=== PATIENT | female | born 2000 | race American Indian/Alaskan Native ===

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

== ENCOUNTER 2020-07-18 14:10 | Emergency (ER) | payer SELFPAY ==
--- NOTE | 2020-07-18 15:38 | Emergency Department Report ---
ED General Adult HPI - General Chief complaint: Psych Stated complaint: im depressed PUI?: No Time Seen by Provider: 07/18/20 15:35 Source: patient, EMS ( EMS documentation not available at time of chart dictation ), RN notes reviewed, old records reviewed Mode of arrival: Stretcher Limitations: No Limitations - History of Present Illness Initial comments: The patient was evaluated in the emergency department for symptoms described in the history of present illness. He/she was evaluated in the context of the global COVID-19 pandemic, which necessitated consideration that the patient might be at risk for infection with the virus that causes COVID-19. Institutional protocols and algorithms that pertain to the evaluation of patients at risk for COVID-19 are in a state of rapid change based on information released by regulatory bodies including the CDC and federal and state organizations. These policies and algorithms were followed during the patient's care in the emergency department. Please note that these policies, procedures and recommendations changed on a rapid basis. During the history and physical examination, I am chaperoned by nurse Angelika Campos This is a pleasant 19-year-old female. 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 She presents to the ER today with complaint of painless depression. She reports that a family member recently . She reports that a few years ago, she was here at this hospital, and started on a medication, the name of which she cannot remember, and felt that it helped her out, and is requesting for refill on this medication. The patient denies all physical pain. The patient denies homicidality, suicidality, hallucinations, urinary symptoms, Covid symptoms, unintentional overdose. The patient reports that she works at home, for [employer]. The patient has no medical complaints at this time. -: Gradual Consistency: constant Improves with: none Worsens with: none Associated Symptoms: denies other symptoms - Related Data Previous Rx's Medication Instructions Recorded Last Taken Type Metoclopramide [Reglan] 10 mg PO ACHS #60 tablet 01/03/18 Unknown Rx cephALEXin [Keflex] 500 mg PO TID 21 Days #1 capsule 01/03/18 Unknown Rx diphenhydrAMINE [Benadryl CAP] 25 mg PO Q8HR PRN #30 capsule 01/03/18 Unknown Rx Ibuprofen 800 mg PO TID PRN #30 tablet 01/29/18 Unknown Rx Allergies Allergy/AdvReac Type Severity Reaction Status Date / Time No Known Allergies Allergy Unverified 08/18/17 08:43 ED Review of Systems ROS: Stated complaint: SUCIDAL IDEATION Other details as noted in HPI Comment: All other systems reviewed and negative Psychiatric: depression. denies: auditory hallucinations, visual hallucinations, homicidal thoughts, suicidal thoughts ED Past Medical Hx - Social History Smoking Status: Current Every Day Smoker Substance Use Type: None - Medications Home Medications: Home Medications Medication Instructions Recorded Confirmed Last Taken Type Metoclopramide [Reglan] 10 mg PO ACHS #60 tablet 01/03/18 Unknown Rx cephALEXin [Keflex] 500 mg PO TID 21 Days #1 capsule 01/03/18 Unknown Rx diphenhydrAMINE [Benadryl CAP] 25 mg PO Q8HR PRN #30 capsule 01/03/18 Unknown Rx Ibuprofen 800 mg PO TID PRN #30 tablet 01/29/18 Unknown Rx ED Physical Exam - General Limitations: No Limitations General appearance: alert, in no apparent distress, obese - Head Head exam: Present: atraumatic, normocephalic - Eye Eye exam: Present: normal appearance, EOMI. Absent: nystagmus - ENT ENT exam: Present: normal exam, normal orophraynx, mucous membranes moist, normal external ear exam - Neck Neck exam: Present: normal inspection, full ROM. Absent: tenderness, meningismus - Respiratory Respiratory exam: Present: normal lung sounds bilaterally. Absent: respiratory distress, wheezes, rales, rhonchi, stridor, decreased breath sounds - Cardiovascular Cardiovascular Exam: Present: regular rate, normal rhythm, normal heart sounds. Absent: bradycardia, tachycardia, irregular rhythm, systolic murmur, diastolic murmur, rubs, gallop - GI/Abdominal GI/Abdominal exam: Present: soft, normal bowel sounds. Absent: distended, tenderness, guarding, rebound, rigid, pulsatile mass - Extremities Exam Extremities exam: Present: normal inspection, full ROM, other (2+ pulses noted in the bilateral upper and lower extremities. There is no palpable cord. negative Homans sign. Muscular compartments are soft. The pelvis is stable.). Absent: pedal edema, calf tenderness - Back Exam Back exam: Present: normal inspection. Absent: tenderness, CVA tenderness (R), CVA tenderness (L), paraspinal tenderness, vertebral tenderness - Neurological Exam Neurological exam: Present: alert, oriented X3, normal gait, other (No facial droop. Tongue midline. Extraocular movements intact bilaterally. Facial sensation intact to light touch in V1, V2, V3 distribution bilaterally. 5 and a 5 strength in 4 extremities. Sensation intact to light touch in 4 extremities.). Absent: motor sensory deficit - Psychiatric Psychiatric exam: Present: normal mood. Absent: flat affect, manic, homicidal ideation, suicidal ideation - Skin Skin exam: Present: warm, dry, intact, normal color. Absent: rash ED Course Vital Signs 07/18/20 15:20 Temperature 98.5 F Pulse Rate 90 Respiratory 20 Rate Blood Pressure 158/77 [Left] O2 Sat by Pulse 97 Oximetry - Reevaluation(s) Reevaluation #1: 07/18/20 17:12 Differential diagnosis, including but not limited to: Encounter for behavioral health screening examination, dysthymia, general medical exam Assessment and plan: 19-year-old female with a GCS of 15, benign and unremarkable physical exam with the exception of elevated blood pressure and BMI of 38, with a complaint of painless depression, and request for antidepressant medication refill. Patient is not homicidal or suicidal, she is calm and cooperative, and exhibits decision-making capacity in a rational and lucid thought process. The patient does not meet criteria for 1013 hold or involuntary hold at this time. Counseled patient that we would not initiate SSRI from the emergency room, as we have no way of following this patient up, or monitoring her. In the past, the patient has preferred nonpharmacologic techniques. I counseled the patient that we would be happy to provide her with outpatient resources to follow-up with. In addition, we will obtain a mental health screening evaluation by our counselor, to also provide this patient with outpatient resources. She can follow-up with her outpatient primary care doctor for her BMI of 38 and incidental elevated blood pressure Reevaluation #2: 07/18/20 17:22 Triage nursing documentation reviewed and appreciated. However, the triage nurse informs me that this is her history that was provided to her by EMS. However, EMS documentation is not available for my personal review. In addition, the patient is absolutely adamant that she is not homicidal or suicidal. She also continues to demonstrate a rational, lucid decision-making thought process. Reevaluation #3: 07/18/20 17:45 Patient has been cleared by the psychiatry team. She will be discharged with instructions to follow-up as an outpatient. ED Medical Decision Making - Lab Data Vital Signs 07/18/20 15:20 Temperature 98.5 F Pulse Rate 90 Respiratory 20 Rate Blood Pressure 158/77 [Left] O2 Sat by Pulse 97 Oximetry Critical care attestation.: If time is entered above; I have spent that time in minutes in the direct care of this critically ill patient, excluding procedure time. ED Disposition Clinical Impression: Encounter for behavioral health screening, BMI 38.0-38.9,adult, Elevated blood pressure reading Disposition: DC-01 TO HOME OR SELFCARE Is pt being admited?: No Does the pt Need Aspirin: No Condition: Good Instructions: BMI for Adults, Depression Screening, Hypertension, Adult Additional Instructions: Please follow-up with an outpatient primary care doctor within the next month. Patient was found to have elevated blood pressure, and body mass index of 38. These are both risk factors for heart attack, stroke, and vascular disease. Recommend the patient diet, lose weight, and exercise as tolerated. Please follow-up with outpatient psychiatric resources that have been provided for the patient. Please return to the emergency room right away with new pain, worsened pain, migration of pain, homicidality, suicidality, hallucinations, or any new, worsened or different symptoms not present on the initial emergency room evaluation. Professional and Agency Contacts To help [facility](22/09) [place] Crisis Line: Suicide Prevention Line: Crisis Text Line: Text START to 671459 Emergency: 911 Outpatient COMMUNITY Behavioral Health Resources: JEFF: [facility] [address], [place] [address] WABASH: [facility] [address] [place] [address] HEBER: [facility] - [address] [place] [address] Thursday thru Thursday - 8am - 5pm LUIS: [facility] Service Address: [facility] [address], [place] [address] MISTY: [facility] Address: [address], [place] [address] Thursday thru Thursday- 7am-2pm [facility] Address: [address], [place] [address] Thursday thru Thursday: 8:30AM-5PM Referrals: DONIS PARK MD [Staff Physician] - 3-5 Days [facility] [Provider Group] - 3-5 Days [facility] [Outside] - 3-5 Days
[2020-07-18 16:14] VITALS: BP 158/77
== END 2020-07-18 18:13 | disposition home or self-care (01) ==
LOC: ED 14:10
DX: Z13.30 Encounter for screening examination for mental health and behavioral disorders, unspecified (principal); R45.851 Suicidal ideations; R03.0 Elevated blood-pressure reading, without diagnosis of hypertension; F17.200 Nicotine dependence, unspecified, uncomplicated; Z98.890 Other specified postprocedural states
CPT/HCPCS: 99283

== ENCOUNTER 2020-08-23 17:36 | Emergency (ER) | payer SELFPAY ==
--- NOTE | 2020-08-23 18:39 | Emergency Department Report ---
Chief Complaint: Urogenital-Female Stated Complaint: VAGINAL DISCOMFORT Time Seen by Provider: 08/23/20 18:33 - HPI History of Present Illness: Here for STI testing Had unprotected sex 2 days ago and now has vag itching no fever or chills no abd or back pain no vag dc no vag bleeding ambulatory and non ill appearing - ROS Review of Systems: vaginal itching - Exam Vital Signs: Vital Signs 08/23/20 18:36 Temperature 98.4 F Pulse Rate 69 Respiratory 18 Rate Blood Pressure 135/67 [Right] O2 Sat by Pulse 98 Oximetry Physical Exam: alert oriented abd snt obese no cva tenderness MSE screening note: Focused history and physical exam performed. Due to findings the following was ordered: no life threat I've educated pt about routine STD testing and she will follow up with pcp and or obgyn in AM. Referrals given. Patient discussed with doctor:: [facility] ED Disposition for MSE Clinical Impression: Vaginitis Disposition: Z- MED SCREENING EXAM-LEFT Is pt being admited?: No Does the pt Need Aspirin: No Condition: Stable Referrals: DONIS PARK MD [Staff Physician] - 3-5 Days STEFANIE SALGUERO MD [Staff Physician] - 3-5 Days Time of Disposition: 18:39
== END 2020-08-23 18:39 | disposition left against medical advice (07) ==
LOC: ED 17:36